=== PATIENT | female | born 2000 | race Caucasian/White ===

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

== ENCOUNTER 2022-06-25 06:31 | Emergency (ER) | payer BC, MEDICAID ==
[2022-06-25] MEDS ORDERED: Ketorolac 30 MG/ML SDV IM ONE (07:10)
[2022-06-25 07:47] LABS: ESTIMATED GFR 107 mL/min (>60)
[2022-06-25] MEDS ORDERED: LORazepam 1 MG Tab PO ONE (08:27)
[2022-06-25] MEDS ORDERED: Sodium Chloride 0.9% 1,000 ML IV SCH (11:15)
[2022-06-25 15:16] VITALS: BP 133/73
[2022-06-25 15:48] VITALS: PULSE 91
== END 2022-06-25 15:45 | disposition home or self-care (01) ==
LOC: JP.ED 06:31
DX: M54.2 Cervicalgia (principal); E66.9 Obesity, unspecified; Z68.35 Body mass index [BMI] 35.0-35.9, adult; Z86.16 Personal history of COVID-19
CPT/HCPCS: 36415; 62270; 70551; 70551-26; 80053; 82945; 83605; 84145; 84157; 85025; 85379; 86140; 87070; 87081; 87205; 87498; 87880-QW; 89050; 96360; 96361; 96372; 99284-25; A9270-GY; J1885; J7030

== ENCOUNTER 2023-08-21 00:02 | Emergency (ER) | payer MEDICAID, OTHER ==
[2023-08-21 00:14] VITALS: BP 113/72; PULSE 98
[2023-08-21] MEDS ORDERED: Tetracaine HCl/PF 0.5% 4 ML Bottle EYEBOTH ONE (00:34)
[2023-08-21] MEDS ORDERED: Acetaminophen 500 MG Tab PO ONE (00:50)
== END 2023-08-21 01:02 | disposition home or self-care (01) ==
LOC: JP.ED 00:02
DX: H16.133 Photokeratitis, bilateral (principal); Z86.16 Personal history of COVID-19
CPT/HCPCS: 99283; A9270

== ENCOUNTER 2024-04-29 13:38 | Emergency (ER) | payer OTHER ==
[2024-04-29] MEDS ORDERED: Sodium Chloride 0.9% 500 ML IV ONE (14:45)
[2024-04-29] MEDS ORDERED: Sodium Chloride 0.9% 10 ML Syringe FLUSH PRN (14:45)
[2024-04-29] MEDS ORDERED: fentaNYL 50 MCG/ML SDV IVPUSH PRN (14:47)
[2024-04-29] MEDS ORDERED: Naloxone 0.4 MG/ML SDV IVPUSH PRN (14:47)
[2024-04-29 14:53] LABS: BASOPHILS ABSOLUTE AUTO 0.03 K/uL (0.00-0.10); BASOPHILS PERCENT AUTO 0.3 % (0.1-1.3); EOSINOPHILS ABSOLUTE AUTO 0.04 K/uL (0.00-0.40); EOSINOPHILS PERCENT AUTO 0.4 % (0.0-5.4); HEMATOCRIT 33.8 % (34.3-46.0); HEMOGLOBIN 12.1 g/dL (11.2-15.5); IMMATURE GRAN ABSOLUTE AUTO 0.05 K/uL (0.00-0.23); IMMATURE GRAN PERCENT AUTO 0.5 % (0.0-0.7); LYMPHOCYTES ABSOLUTE AUTO 1.78 K/uL (0.8-3.3); LYMPHOCYTES PERCENT AUTO 16.1 % (11.4-47.7); MEAN CORPUSCULAR HEMOGLOBIN 29.8 pg (31.6-35.5); MEAN CORPUSCULAR HGB CONC 35.8 g/dL (31.6-35.5); MEAN CORPUSCULAR VOLUME 83.3 fL (81.4-99.0); MONOCYTES PERCENT AUTO 10.8 % (3.3-12.6); NEUTROPHILS ABSOLUTE AUTO 7.97 K/uL (1.0-7.6); NEUTROPHILS PERCENT AUTO 71.9 % (40.0-78.1); PLATELET COUNT,PLT 290 K/uL (130-375); RED BLOOD CELL COUNT 4.06 M/uL (3.77-5.24); WHITE BLOOD CELL COUNT,WBC 11.1 K/uL (3.2-11.0)
[2024-04-29 14:57] LABS: APPEARANCE,URINE CLEAR (CLEAR); BILIRUBIN,URINE NEGATIVE (NEGATIVE); COLOR,URINE YELLOW (YELLOW); GLUCOSE,URINE NEGATIVE (NEGATIVE); KETONES,URINE NEGATIVE (NEGATIVE); LEUKOCYTE ESTERASE,URINE NEGATIVE (NEGATIVE); NITRITE,URINE NEGATIVE (NEGATIVE); OCCULT BLOOD,URINE NEGATIVE (NEGATIVE); PROTEIN,URINE NEGATIVE (NEGATIVE); UROBILINOGEN,URINE 0.2 EU/dL (0.2-1.0)
[2024-04-29 15:05] LABS: AMORPHOUS SEDIMENT,URINE NOT SEEN; BACTERIA,URINE MODERATE; EPITHELIAL CELLS,URINE MANY; MUCUS,URINE FEW; RBC,URINE 0-5 (0-5); WBC,URINE 0-5 (0-5)
[2024-04-29] MEDS: Metoclopramide 10 MG/2 ML SDV IVPUSH ONE (15:12)
[2024-04-29] MEDS: Acetaminophen 325 MG Tab PO ONE (15:13)
[2024-04-29 15:23] LABS: PROTHROMBIN TIME 10.7 sec (9.2-10.6)
[2024-04-29 15:27] LABS: PTT,PARTIAL THROMBOPLSTIN TIME 23.5 sec (21.8-27.3)
[2024-04-29 15:30] VITALS: BP 117/60; PULSE 74
[2024-04-29 15:37] LABS: ANION GAP 10.9 mmol/L (5.0-14.0); CALCIUM 9.4 mg/dL (8.5-10.1); CREATININE 0.8 mg/dL (0.6-1.0); EST CRCL DRUG DOSING (CG) 94.44 mL/min; POTASSIUM,K 3.9 mmol/L (3.6-5.2)
== END 2024-04-29 17:00 | disposition home or self-care (01) ==
LOC: JP.ED 13:38
DX: R10.32 Left lower quadrant pain (principal); E66.9 Obesity, unspecified; Z68.34 Body mass index [BMI] 34.0-34.9, adult
CPT/HCPCS: 36415; 76801; 76817; 80048; 81001; 84702; 85025; 85610; 85730; 86140; 86850; 86900; 86901; 93976; 96374; 99284; A9270; J2765; 99283

== ENCOUNTER 2025-08-01 03:44 | Emergency (ER) | payer MEDICAID, OTHER ==
[2025-08-01 04:20] LABS: BASOPHILS ABSOLUTE AUTO 0.03 K/uL (0.00-0.10); BASOPHILS PERCENT AUTO 0.3 % (0.1-1.3); EOSINOPHILS ABSOLUTE AUTO 0.11 K/uL (0.00-0.40); EOSINOPHILS PERCENT AUTO 1.3 % (0.0-5.4); IMMATURE GRAN ABSOLUTE AUTO 0.03 K/uL (0.00-0.23); IMMATURE GRAN PERCENT AUTO 0.3 % (0.0-0.7); LYMPHOCYTES ABSOLUTE AUTO 1.75 K/uL (0.8-3.3); LYMPHOCYTES PERCENT AUTO 20.1 % (11.4-47.7); MONOCYTES ABSOLUTE AUTO 0.82 K/uL (0.20-0.90); MONOCYTES PERCENT AUTO 9.4 % (3.3-12.6); NEUTROPHILS ABSOLUTE AUTO 5.95 K/uL (1.0-7.6); NEUTROPHILS PERCENT AUTO 68.6 % (40.0-78.1); PLATELET COUNT,PLT 305 K/uL (130-375); RED BLOOD CELL COUNT 4.42 M/uL (3.77-5.24); WHITE BLOOD CELL COUNT,WBC 8.7 K/uL (3.2-11.0)
[2025-08-01 04:43] LABS: A/G RATIO 0.9 (1.2-2.2); ALANINE AMINOTRANSFERASE,ALT 43 U/L (12-78); ASPARTATE AMNIOTRANSFERASE,AST 40 U/L (15-37); BILIRUBIN TOTAL 0.4 mg/dL (0.2-1.0); BLOOD UREA NITROGEN,BUN 16 mg/dL (7-18); CARBON DIOXIDE,CO2 27 mmol/L (21-32); CHLORIDE,CL 106 mmol/L (100-108); CREATININE 0.9 mg/dL (0.6-1.0); EST CRCL DRUG DOSING (CG) 86.73 mL/min; ESTIMATED GFR 92 mL/min (>60); GLUCOSE RANDOM 97 mg/dL (74-106); POTASSIUM,K 4.1 mmol/L (3.6-5.2); PROTEIN TOTAL,TP 7.0 g/dL (6.4-8.2); SODIUM,NA 139 mmol/L (140-148)
[2025-08-01 04:44] LABS: TROPONIN I HIGH SENSITIVITY < 4.0 pg/mL (<=60.3)
[2025-08-01 04:46] LABS: LACTIC ACID 1.1 mmol/L (0.4-2.0)
[2025-08-01 05:00] VITALS: BP 111/59; PULSE 80
== END 2025-08-01 05:00 | disposition home or self-care (01) ==
LOC: JP.ED 03:44
DX: R10.13 Epigastric pain (principal); E66.9 Obesity, unspecified; Z68.36 Body mass index [BMI] 36.0-36.9, adult
CPT/HCPCS: 36415; 80053; 83605; 83690; 84484; 85025; 86140; 93005; 93010; 99284

== ENCOUNTER 2025-08-08 08:08 | Emergency (ER) | payer MEDICAID ==
[2025-08-08 08:27] VITALS: BP 117/79; PULSE 109
[2025-08-08 08:55] LABS: CORONAVIRUS COVID-19 NAA NEGATIVE (NEGATIVE); INFLUENZA A NAA POSITIVE (NEGATIVE); INFLUENZA B NAA NEGATIVE (NEGATIVE); RESPIRATORY SYNCYTIAL VIR NAA NEGATIVE (NEGATIVE)
== END 2025-08-08 09:14 | disposition home or self-care (01) ==
LOC: JP.ED 08:08
DX: J10.1 Influenza due to other identified influenza virus with other respiratory manifestations (principal); E66.9 Obesity, unspecified; Z86.16 Personal history of COVID-19; Z79.899 Other long term (current) drug therapy; Z68.37 Body mass index [BMI] 37.0-37.9, adult
CPT/HCPCS: 87637; 99283